=== PATIENT | female | born 1940 | race Caucasian/White ===

== ENCOUNTER 2017-10-29 13:28 | Outpatient (CLI) | payer MEDICARE, OTHER ==
--- NOTE | 2017-10-29 14:54 | Diagnostic Imaging Report ---
WALTER MATA [facility] [id number] [facility] [address] [id number] Report Submission Date: Oct 29, 2017 1:49:21 PM MIMEOGRAPHER Patient Study Name: MAMADOU CHRISTIANSEN Date: Oct 29, 2017 1:34:11 PM MIMEOGRAPHER Modality Type: CR Gender: F Description: LOWER EXTREMITY : 44 Institution: [facility] Physician: WALTER MATA Examination: Plain film foot History: Discomfort Findings: 3 views of the foot demonstrates articular degenerative changes and osteopenia. Mild hallux valgus deformity 1st digit. No fracture or dislocation. Degenerative changes of the lisfranc joint. Inferior calcaneal spur. No soft tissue swelling. No joint effusion. Impression: Osteopenia. Degenerative changes. No fracture. Electronically signed on Oct 29, 2017 1:49:21 PM MIMEOGRAPHER by: Meño ESPINOZA
== END 2017-10-29 13:30 ==
LOC: RAD 13:28
PROVIDERS: ATTEND Family Medicine
DX: M77.42 Metatarsalgia, left foot (principal)
CPT/HCPCS: 73630